=== PATIENT | female | born 1985 | race Caucasian/White ===

== ENCOUNTER 2020-08-11 12:11 | Outpatient (REF) | payer OTHER, SELFPAY ==
[2020-08-11 13:55] LABS: MANUAL DIFF FLAG NO
[2020-08-11 14:04] LABS: Basophils Percent Auto 0.6 % (0-2); Eosinophils Percent Auto 0.6 % (0-4); Hemoglobin 11.1 g/dl (12.0-16.0); Imm Gran Abs Auto 0.02 X10*3/uL (0.00-0.03); Imm Gran Pct Auto 0.4 % (0.0-0.4); Lymphocytes Absolute Auto 1.1 X10*3/uL (1.2-4.9); Lymphocytes Percent Auto 20.3 % (20-40); Mean Corpuscular HGB Conc 30.8 g/dl (31.0-35.0); Mean Corpuscular Hemoglobin 24.4 pg (27.0-33.0); Mean Corpuscular Volume 79.3 fL (80-98); Mean Platelet Volume 10.8 fL (9.4-12.3); Monocytes Absolute Auto 0.4 X10*3/uL (0.1-1.2); Monocytes Percent Auto 6.7 % (2-11); Neutrophils Absolute Auto 3.8 X10*3/uL (2.0-8.3); Neutrophils Percent Auto 71.4 % (45-73); Platelet Count 273 X10*3/uL (160-400); Red Blood Count 4.54 X10*6/uL (4.20-5.50); Red Cell Distribution Width 14.8 % (11.0-16.0); White Blood Count 5.3 X10*3/uL (4.8-10.8)
[2020-08-11 14:22] LABS: Alanine Aminotransferase 32 U/L (0-31); Albumin Level 4.2 g/dL (3.5-5.0); Alkaline Phosphatase 112 U/L (39-117); Anion Gap 14 (12-20); Aspartate Amino Transferase 30 U/L (5-31); Bilirubin Total 0.3 mg/dL (0.0-1.0); Blood Urea Nitrogen 19 mg/dL (9-16); Carbon Dioxide 23 mmol/L (22-29); Chloride 105 mmol/L (96-108); Cholesterol 179 mg/dL; Estimated Glomerular Filt Rate > 60; Glucose Random 89 mg/dL (60-115); Potassium 4.5 mmol/L (3.3-5.1); Sodium 137 mmol/L (135-145); Total Protein 8.1 g/dL (6.5-8.0)
[2020-08-11 14:50] LABS: Syphilis Screen Nonreactive (Nonreactive)
[2020-08-12 08:25] LABS: ~HepC Num1 15.35 S/CO (0.00-0.79); ~Hepatitis C Antibody Reactive (Nonreactive)
[2020-08-12 08:28] LABS: HBS Num1 > 1000.00 mIU/mL (0-7.99); HBc Num1 0.18 S/CO (0.00-0.79); Hepatitis B Core Antibody Nonreactive (Nonreactive); ~Hepatitis B Surface Antibody REACTIVE (Nonreactive)
[2020-08-12 08:36] LABS: HBsAGNum1 0.22 S/CO (0.00-0.99); Hepatitis B Surface Antigen Negative (Negative)
[2020-08-13 18:08] LABS: HIV RNA PCR Qn Copies <20 NOT DETECTED copies/mL (NOT DETECTED); HIV RNA PCR Qn Log Copies <1.30 NOT DETECTED (NOT DETECTED)
[2020-08-13 21:46] LABS: HCV Log PCR <1.18 NOT DETECTED Log IU/mL (NOT DETECTED); HepC Viral Load <15 NOT DETECTED IU/mL (NOT DETECTED)
== END 2020-08-11 12:12 | disposition home or self-care (01) ==
LOC: HO.HMGCLDS 12:11
PROVIDERS: Visit Provider Family Medicine
DX: F11.20 Opioid dependence, uncomplicated (principal)
CPT/HCPCS: 36415; 80053; 82465; 85025; 86704; 86706; 86780; 86803; 87340; 87522; 87536

== ENCOUNTER 2020-09-01 12:55 | Emergency (ER) | payer OTHER, SELFPAY ==
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
--- NOTE | 2020-09-01 13:13 | PC.NURSE ---
called patient to triage, patient has been in bathroom for 10 minutes. this RN checked on patient who states she is attempting to move bowels. security also made aware
[2020-09-01 13:19] VITALS: BP 124/79; PULSE 102; RESP 18; TEMP 36.6; O2SAT 95; BMI 23.3
[2020-09-01 13:55] VITALS: BP 121/82; PULSE 113; RESP 17; TEMP 36.8; O2SAT 97
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
--- NOTE | 2020-09-01 15:31 | PC.NURSE ---
STEADY GAIT OUT OF ED WITH RIDE
== END 2020-09-01 15:43 | disposition home or self-care (01) ==
PROVIDERS: Emergency Provider Emergency Medicine
DX: S06.0X0A Concussion without loss of consciousness, initial encounter (principal); V13.0XXA Pedal cycle driver injured in collision with car, pick-up truck or van in nontraffic accident, initial encounter; Y93.55 Activity, bike riding; Y92.410 Unspecified street and highway as the place of occurrence of the external cause; Y99.9 Unspecified external cause status
CPT/HCPCS: 70450; 99283; 99284

== ENCOUNTER 2020-09-28 16:38 | Outpatient (REF) | payer OTHER, SELFPAY ==
[2020-09-28 18:00] LABS: Hematocrit 32.6 % (37-47); Hemoglobin 10.3 g/dl (12.0-16.0); Mean Corpuscular HGB Conc 31.6 g/dl (31.0-35.0); Mean Corpuscular Hemoglobin 24.3 pg (27.0-33.0); Mean Corpuscular Volume 76.9 fL (80-98); Mean Platelet Volume 10.3 fL (9.4-12.3); Platelet Count 213 X10*3/uL (160-400); Red Blood Count 4.24 X10*6/uL (4.20-5.50); Red Cell Distribution Width 15.2 % (11.0-16.0); White Blood Count 3.9 X10*3/uL (4.8-10.8)
[2020-09-28 18:23] LABS: Alanine Aminotransferase 31 U/L (0-31); Albumin Level 4.1 g/dL (3.5-5.0); Alkaline Phosphatase 113 U/L (39-117); Anion Gap 15 (12-20); Aspartate Amino Transferase 31 U/L (5-31); Bilirubin Total 0.3 mg/dL (0.0-1.0); Blood Urea Nitrogen 8 mg/dL (9-16); Calcium 9.3 mg/dL (8.4-10.2); Carbon Dioxide 24 mmol/L (22-29); Chloride 105 mmol/L (96-108); Cholesterol 170 mg/dL; Estimated Glomerular Filt Rate 53; Glucose Random 110 mg/dL (60-115); Potassium 3.9 mmol/L (3.3-5.1); Sodium 140 mmol/L (135-145); Total Protein 8.1 g/dL (6.5-8.0)
[2020-09-29 04:51] LABS: ~HepC Num1 13.25 S/CO (0.00-0.79); ~Hepatitis C Antibody Reactive (Nonreactive)
[2020-09-29 04:55] LABS: HBc Num1 0.23 S/CO (0.00-0.79); HBsAGNum1 0.18 S/CO (0.00-0.99); Hepatitis B Core Antibody Nonreactive (Nonreactive); Hepatitis B Surface Antigen Negative (Negative)
[2020-09-29 05:28] LABS: ~Hepatitis B Surface Antibody REACTIVE (Nonreactive)
[2020-09-29 06:50] LABS: Syphilis Screen Nonreactive (Nonreactive)
[2020-09-30 15:46] LABS: HIV RNA PCR Qn Copies <20 NOT DETECTED copies/mL (NOT DETECTED); HIV RNA PCR Qn Log Copies <1.30 NOT DETECTED (NOT DETECTED)
[2020-10-02 12:32] LABS: HCV Log PCR <1.18 NOT DETECTED Log IU/mL (NOT DETECTED); HepC Viral Load <15 NOT DETECTED IU/mL (NOT DETECTED)
== END 2020-09-28 16:39 | disposition home or self-care (01) ==
LOC: HO.LAB 16:38
PROVIDERS: PCP Physician Assistant; Visit Provider Family Medicine
DX: Z01.84 Encounter for antibody response examination (principal); Z11.59 Encounter for screening for other viral diseases; Z11.4 Encounter for screening for human immunodeficiency virus [HIV]; F11.20 Opioid dependence, uncomplicated
CPT/HCPCS: 36415; 80053; 82465; 85027; 86704; 86706; 86780; 86803; 87340; 87522; 87536

== ENCOUNTER 2020-10-24 15:58 | Emergency (ER) | payer OTHER, SELFPAY ==
--- NOTE | ~2020-10-24 | CT_ITS ---
EXAMINATION: CT CERVICAL SPINE WITHOUT CONTRAST CLINICAL INFORMATION: Fall COMPARISON: None TECHNIQUE: CT scan of cervical spine was performed without contrast reconstruction imaging performed at the acquisition workstation. This CT examination was performed using dose optimization techniques as appropriate, variously including the following: *Automated exposure control *Adjustment of mA and/or kV according to patient size (this includes techniques or standardized protocols for targeted exams where dose is matched to indication/reason for exam; i.e. extremities or head) *Use of iterative reconstruction technique DLP: 37 mGy-cm FINDINGS: There is a mild kyphosis of the cervical spine which may be positional or reflect normal variation. There are mild degenerative changes with disc space narrowing at the C5-6 level with mild endplate osteophytes I do not see a fracture or dislocation CT/CT cervical spine wo con IMPRESSION: Mild cervical spondylosis. No acute abnormality
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
[2020-10-24 16:02] VITALS: PULSE 86; RESP 16; O2SAT 100; BMI 23.3
[2020-10-24] MEDS: Acetaminophen 325 MG TABLET 650 MG PO (16:36)
--- NOTE | 2020-10-24 16:46 | PC.NURSE ---
patient refusing tetanus stating that he doctor manages her vaccinations and if she needs one he will give it to her physician made aware patient advised to call primary first thing in the morning to confirm vaccination status
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
--- NOTE | 2020-10-24 18:04 | PC.NURSE ---
pt refusing sutures
== END 2020-10-24 18:20 | disposition home or self-care (01) ==
PROVIDERS: Emergency Provider Internal Medicine
DX: S09.90XA Unspecified injury of head, initial encounter (principal); S01.81XA Laceration without foreign body of other part of head, initial encounter; S00.31XA Abrasion of nose, initial encounter; V11.0XXA Pedal cycle driver injured in collision with other pedal cycle in nontraffic accident, initial encounter; Y93.55 Activity, bike riding; Y92.410 Unspecified street and highway as the place of occurrence of the external cause; Y99.9 Unspecified external cause status
CPT/HCPCS: 70450; 70486; 72125; 90471; 99283; 99284

== ENCOUNTER 2021-01-04 13:37 | Emergency (ER) | payer OTHER, SELFPAY | END 2021-01-04 15:55 | disposition left against medical advice (07) | PROVIDERS: Emergency Provider Emergency Medicine | DX: S89.90XA Unspecified injury of unspecified lower leg, initial encounter (principal); X58.XXXA Exposure to other specified factors, initial encounter; Y93.9 Activity, unspecified; Y92.9 Unspecified place or not applicable; Y99.9 Unspecified external cause status ==

== ENCOUNTER 2021-01-09 17:13 | Emergency (ER) | payer OTHER, SELFPAY ==
--- NOTE | ~2021-01-09 | XR_ITS ---
EXAMINATION: XR KNEE, LEFT CLINICAL INFORMATION: Pain and injury COMPARISON: None TECHNIQUE: Four views of the left knee. FINDINGS: No acute fracture or dislocation. Joint spaces and articular surfaces are maintained. Small marginal osteophytes present along the superior and inferior poles of the patella. Moderate knee joint effusion. No radiopaque foreign body. XR/XR knee LT 4V IMPRESSION: No fractures. Moderate knee joint effusion.
[2021-01-09 17:20] VITALS: BP 106/61; PULSE 105; RESP 18; TEMP 36.2; O2SAT 98; BMI 22.6
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
[2021-01-09] MEDS: Ibuprofen 600 MG TABLET PO (18:39)
[2021-01-09] MEDS: HYDROcodone Bit/Acetam 5/325 TABLET 1 TAB PO (18:39)
== END 2021-01-09 18:57 | disposition home or self-care (01) ==
PROVIDERS: Emergency Provider Internal Medicine
DX: M25.462 Effusion, left knee (principal); M25.562 Pain in left knee; Z79.899 Other long term (current) drug therapy
CPT/HCPCS: 73564; 99283; 99284

== ENCOUNTER 2022-09-04 19:59 | Emergency (ER) | payer OTHER, SELFPAY ==
--- NOTE | 2022-09-04 20:33 | ED.GENADULT ---
HPI - General Adult General Chief complaint: General Medical Stated complaint: possible styptic Related Data Previous Rx's Medication Instructions Recorded ibuprofen 600 mg tablet 600 mg PO Q8H PRN pain #20 tabs 01/09/21 Allergies Allergy/AdvReac Type Severity Reaction Status Date / Time latex [LATEX] Allergy Unknown HIVES Unverified 12/04/19 18:53 cats Allergy Unknown Unknown Uncoded 01/09/21 17:20 dogs Allergy Unknown Unknown Uncoded 01/09/21 17:20 pollen Allergy Unknown Unknown Uncoded 01/09/21 17:20 PMF Past Medical History Medical History Asthma Epilepsy Social History Social History Advance Directives: No Advance Directives Information Provided: Yes Physical Exam ED Vital Signs: BMI result Body Mass Index 24.9 Course Course Course Narrative: 37-year-old female with past medical history significant for IV drug abuse presents for evaluation of subjective fevers and chills. Reports increased fatigue and sweating as well. Patient endorses continued IV drug abuse. Plan for labs, UA, chest x-ray, blood cultures. The patient does not have any obvious sources of cellulitis/abscess to upper extremities. But she does still have track garcia Discharge Plan Discharge Clinical Impression: Substance abuse Patient Disposition: Left Without Being Seen Interventions: LWBS Worksheet Last Done: 09/04/22 21:30 Discharge Date/Time: 09/04/22 21:30
[2022-09-04 20:34] VITALS: BP 137/87; PULSE 80; RESP 16; TEMP 36.9; O2SAT 94; BMI 24.9
== END 2022-09-04 21:30 | disposition left against medical advice (07) ==
PROVIDERS: Emergency Provider Emergency Medicine
DX: R50.9 Fever, unspecified (principal)
CPT/HCPCS: 99281

== ENCOUNTER 2024-06-27 23:55 | Emergency (ER) | payer MEDICAID, SELFPAY ==
[2024-06-27 23:59] VITALS: BP 150/92; PULSE 177; O2SAT 98
[2024-06-28] VITALS (8 sets, daily range): BP systolic 100–132; BP diastolic 50–81; PULSE 54–158; RESP 13–20; TEMP 36.6–37.7; O2SAT 97–100; BMI 20.6
--- NOTE | 2024-06-28 00:11 | ECG_ITS ---
Test Reason : TACHY Blood Pressure : */* mmHG Vent. Rate : 141 BPM Atrial Rate : 141 BPM P-R Int : 126 ms QRS Dur : 80 ms QT Int : 290 ms P-R-T Axes : 33 50 29 degrees QTcB Int : 444 ms Sinus tachycardia Nonspecific ST abnormality Abnormal ECG No previous ECGs available Referred By: Generic ED Physician Electronically Signed By: Owen Wiley
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
[2024-06-28 00:43] LABS: Amphetamine Screen Urine Not Detected (Not Detect); Barbiturates, Urine Not Detected (Not Detect); Opiate Screen Urine POSITIVE (Not Detect); Phencyclidine Screen Urine Not Detected (Not Detect)
[2024-06-28 00:44] LABS: Benzodiazepines Screen Urine POSITIVE (Not Detect); Buprenorphine Scr Not Detected (Not Detect); Cannabinoid Screen Urine Not Detected (Not Detect); Cocaine Screen Urine POSITIVE (Not Detect); Fentanyl, urine POSITIVE (Not Detect); Methadone Screen, Urine Positive (Not Detect); Oxycodone Screen Urine Not Detected (Not Detect)
[2024-06-28 01:16] LABS: Urine Pregnancy NEGATIVE (NEGATIVE)
[2024-06-28 01:26] LABS: UPreg QC Valid YES
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
[2024-06-28 04:07] LABS: Alanine Aminotransferase 39 U/L (0-31); Albumin Level 3.9 g/dL (3.5-5.0); Alkaline Phosphatase 82 U/L (39-117); Anion Gap 12 (12-20); Aspartate Amino Transferase 54 U/L (5-31); Bilirubin Direct 0.1 mg/dL (0.0-0.5); Bilirubin Total 0.3 mg/dL (0.0-1.0); Blood Urea Nitrogen 14 mg/dL (9-16); Calcium 9.2 mg/dL (8.4-10.2); Carbon Dioxide 25 mmol/L (22-29); Chloride 103 mmol/L (96-108); Creatinine Clr Calc Pharmacy 66.2; Estimated Glomerular Filt Rate > 60; Glucose Random 99 mg/dL (60-115); Sodium 136 mmol/L (135-145); Total Protein 6.9 g/dL (6.5-8.0)
[2024-06-28 04:13] LABS: Basophils Percent Auto 0.2 % (0-2); Eosinophils Percent Auto 0.6 % (0-4); Hematocrit 27.8 % (37.0-47.0); Hemoglobin 8.5 g/dl (12.0-16.0); Imm Gran Abs Auto 0.02 X10*3/uL (0.00-0.03); Imm Gran Pct Auto 0.4 % (0.0-0.4); Lymphocytes Absolute Auto 0.6 X10*3/uL (1.2-4.9); Lymphocytes Percent Auto 12.3 % (20-40); MANUAL DIFF FLAG NO; Mean Corpuscular HGB Conc 30.6 g/dl (31.0-35.0); Mean Corpuscular Hemoglobin 20.3 pg (27.0-33.0); Mean Corpuscular Volume 66.5 fL (80.0-98.0); Mean Platelet Volume 10.4 fL (9.4-12.3); Monocytes Absolute Auto 0.4 X10*3/uL (0.1-1.2); Monocytes Percent Auto 8.1 % (2-11); Neutrophils Absolute Auto 4.1 x10*3/uL (2.0-8.3); Neutrophils Percent Auto 78.4 % (45-73); Platelet Count 194 X10*3/uL (160-400); Red Blood Count 4.18 X10*6/uL (4.20-5.50); Red Cell Distribution Width 16.1 % (11.0-16.0); White Blood Count 5.2 X10*3/uL (4.8-10.8)
--- NOTE | 2024-06-28 04:46 | PC.NURSE ---
ASHLEY nurse and PD unable to access pt, pt too somnolent at this time. will call both parties back when pt is awake
--- NOTE | 2024-06-28 06:12 | MHC.EDTECH ---
Late entry- Assumed care of Pt when Pt was moved from ED22 to ED7 @ 0200.
--- NOTE | 2024-06-28 12:01 | PHA.MEDREC ---
Pharmacy Consult ? Medication Reconciliation Pharmacy has completed the medication reconciliation. Using claim history, PDMP, and speaking to patient was able to complete med rec. Of note, patient got alprazolam 2 mg recently and rx was written incorrectly. It was previously tid and new script was written for only bedtime. Put in med rec as tid to accurately match patient history. Patient was also recently prescribed valacyclovir but she is only using that as needed for outbreaks so the provider will be informed that she is not currently on this medication.
--- NOTE | 2024-06-28 13:59 | PC.NURSE ---
pt remains resting with eyes closed, NAD, breathing even and unlabored. drowsy and unable to remain awake when name called but pt does wake.
--- NOTE | 2024-06-28 16:18 | PC.NURSE ---
went to assess vitals on pt, pt more awake at this time. pt reports no complaints at this time. this RN offered pt consult to care team, offered pt ability to make statement to PD and offered pt SANE assessment. pt refused all interventions. informed MD May that pt no longer wishes to speak with PD, CARE team or [employer]GETABLE WORKER. this RN witness to MD May at bedside assess pt need for intervention. pt continue to denies desire to have SANE present or complete assessment, denies intervention by CARE team and denies the desire to make a statement with PD. pt report she just wants to go home
[2024-06-28] MEDS: Naloxone HCl Nasal TAKE HOME 4 MG SPRAY 8 MG NOSTRILALT (16:27)
[2024-06-30 07:53] LABS: Syphilis Screen Nonreactive (Nonreactive)
[2024-06-30 08:32] LABS: HBS Num1 885.52 mIU/mL (0-7.99); HBsAGNum1 0.37 S/CO (0.00-0.99); HIV AB/AG Nonreactive (Nonreactive); HIV Num 1 0.06 S/CO (0.00-0.99); Hepatitis B Surface Antigen Negative (Negative); ~HepC Num1 15.55 S/CO (0.00-0.79); ~Hepatitis B Surface Antibody REACTIVE (Nonreactive); ~Hepatitis C Antibody Reactive (Nonreactive)
== END 2024-06-28 17:50 | disposition home or self-care (01) ==
PROVIDERS: Emergency Provider Emergency Medicine; PCP Physician Assistant
DX: F14.10 Cocaine abuse, uncomplicated (principal); F41.9 Anxiety disorder, unspecified; F11.10 Opioid abuse, uncomplicated; R00.0 Tachycardia, unspecified; Z51.81 Encounter for therapeutic drug level monitoring; Z79.899 Other long term (current) drug therapy
CPT/HCPCS: 36415; 80048; 80076; 80307; 81025; 85025; 86706; 86780; 86803; 87340; 87389; 93005; 99285

== ENCOUNTER → 2024-06-28 00:11 | Outpatient (BNV) | payer MEDICAID, SELFPAY | PROVIDERS: Emergency Provider Emergency Medicine; PCP Physician Assistant; Visit Provider Internal Medicine Cardiovascular Disease | DX: R00.0 Tachycardia, unspecified (principal) | CPT/HCPCS: 93010 ==